=== PATIENT | male | born 1975 | race Native Hawaiian/Other Pacific Islander ===

== ENCOUNTER 2017-03-28 08:33 | Emergency (ER) | payer OTHER ==
[~2017-03-28] VITALS: Ht 182.9 cm; Wt 95.7 kg
[2017-03-28 08:30] VITALS: TEMP 97.7
[~2017-03-28 08:33] MED LIST: AMOX500C85 PO; CEPACOL SORE1 LOZ MT; CHANTIX STARTIN0.5 & PO; ENBREL50 MG/ML SC; LEVO0.08 PO; LEVO0.1224 PO; MICARDIS40 MG PO; TESTOST CYP100 MG/ML IM; TIROSINT75 MCG OR
[2017-03-28 10:00] VITALS: BP 148/90
== END 2017-03-28 09:55 | disposition home or self-care (01) ==
LOC: ED 08:33
DX: S92.512A Displaced fracture of proximal phalanx of left lesser toe(s), initial encounter for closed fracture (principal); X58.XXXA Exposure to other specified factors, initial encounter
CPT/HCPCS: 96372; 99283; J1885

== ENCOUNTER 2019-03-09 11:12 | Outpatient (CLI) | payer OTHER | END 2019-03-09 16:00 | disposition home or self-care (01) | LOC: RAD 11:12 | DX: S69.92XA Unspecified injury of left wrist, hand and finger(s), initial encounter (principal) ==

== ENCOUNTER 2019-09-07 09:57 | Emergency (ER) | payer OTHER ==
[~2019-09-07] VITALS: Ht 182.9 cm; Wt 89.8 kg
[2019-09-07 09:57] VITALS: TEMP 98.1
[2019-09-07] MEDS ORDERED: CLON0.5T36 PO (10:09)
[2019-09-07] MEDS ORDERED: SERT50TA PO (10:09)
[2019-09-07] MEDS ORDERED: MICARDIS HCT PO (10:10)
[2019-09-07 10:38] LABS: PLATELET COUNT 225 K/uL (142-355)
[2019-09-07 10:45] LABS: POTASSIUM 3.9 mmol/L (3.6-5.2); SODIUM 135 mmol/L (136-145)
[2019-09-07 14:05] VITALS: BP 106/77
== END 2019-09-07 14:05 | disposition home or self-care (01) ==
LOC: ED 09:57
PROVIDERS: Student in an Organized Health Care Education/Training Program
DX: R07.89 Other chest pain (principal)
CPT/HCPCS: 36415; 80048; 83690; 83735; 83880; 84484; 85027; 85610; 85730; 93005; 99284

== ENCOUNTER 2021-03-03 06:52 | Emergency (ER) | payer OTHER ==
[~2021-03-03] VITALS: Ht 182.9 cm; Wt 81.6 kg
[~2021-03-03 06:52] MED LIST changes: +CLON0.5T36 PO; +MICARDIS HCT PO; +SERT50TA PO
[2021-03-03 07:12] VITALS: BP 143/100; TEMP 98.1
== END 2021-03-03 10:01 | disposition still patient (30) ==
LOC: ED 06:52
PROC: 0HQFXZZ Repair Right Hand Skin, External Approach (ICD-10-PCS; principal; 2021-03-03)
DX: S61.216A Laceration without foreign body of right little finger without damage to nail, initial encounter (principal); S60.410A Abrasion of right index finger, initial encounter; S60.412A Abrasion of right middle finger, initial encounter; S60.414A Abrasion of right ring finger, initial encounter; W23.0XXA Caught, crushed, jammed, or pinched between moving objects, initial encounter; Y92.89 Other specified places as the place of occurrence of the external cause
CPT/HCPCS: 96372; 99283; J0690; J1885

== ENCOUNTER 2021-04-18 12:05 | Outpatient (CLI) | payer OTHER | END 2021-04-18 19:13 | disposition home or self-care (01) | LOC: CT 12:05 | PROVIDERS: ATTEND Internal Medicine | DX: R31.9 Hematuria, unspecified (principal); R10.9 Unspecified abdominal pain ==

== ENCOUNTER 2021-08-29 14:46 | Outpatient (CLI) | payer OTHER | END 2021-08-29 19:22 | disposition home or self-care (01) | LOC: RAD 14:46 | PROVIDERS: ATTEND Internal Medicine | DX: R05.3 Chronic cough (principal); M25.511 Pain in right shoulder ==

== ENCOUNTER 2022-05-30 17:28 | Emergency (ER) | payer OTHER ==
[~2022-05-30] VITALS: Ht 182.9 cm; Wt 81.6 kg
[2022-05-30 17:34] VITALS: TEMP 98.4
[2022-05-30 18:45] VITALS: BP 148/76
== END 2022-05-30 18:45 | disposition home or self-care (01) ==
LOC: ED 17:28
DX: S02.2XXA Fracture of nasal bones, initial encounter for closed fracture (principal); J32.0 Chronic maxillary sinusitis; F17.210 Nicotine dependence, cigarettes, uncomplicated; W20.8XXA Other cause of strike by thrown, projected or falling object, initial encounter; Y93.H3 Activity, building and construction; Y92.89 Other specified places as the place of occurrence of the external cause
CPT/HCPCS: 99283

== ENCOUNTER 2022-11-28 18:14 | Outpatient (CLI) | payer OTHER | END 2022-11-28 19:02 | disposition home or self-care (01) | LOC: RAD 18:14 | PROVIDERS: ATTEND Internal Medicine | DX: R06.02 Shortness of breath (principal) | CPT/HCPCS: 93005 ==

== ENCOUNTER 2022-12-26 08:15 | Outpatient (CLI) | payer OTHER | END 2022-12-26 19:18 | disposition home or self-care (01) | LOC: US 08:15 | PROVIDERS: ATTEND Internal Medicine | DX: R07.89 Other chest pain (principal); R53.83 Other fatigue ==

== ENCOUNTER 2023-01-25 08:59 | Outpatient (CLI) | payer OTHER | END 2023-01-25 19:02 | disposition home or self-care (01) | LOC: RESP 08:59 | PROVIDERS: ATTEND Internal Medicine | DX: K80.80 Other cholelithiasis without obstruction (principal); R07.89 Other chest pain; R06.09 Other forms of dyspnea; I10 Essential (primary) hypertension; E06.3 Autoimmune thyroiditis; E78.49 Other hyperlipidemia; Z72.0 Tobacco use; R53.83 Other fatigue ==